=== PATIENT | female | born 1995 | race Caucasian/White ===

== ENCOUNTER 2016-09-15 15:30 | Emergency (ER) | payer MEDICAID ==
--- NOTE | 2016-09-15 17:02 | UCPHY ---
H & P Time Seen by Provider: 09/15/16 16:59 Patient Type: Established HPI/ROS: HPI: Th 20-year-old female presents to urgent care with chief concern fever up to 101.5, sore throat, enlarged tonsils. Symptoms onset suddenly yesterday. Reports significant fatigue. Reports myalgias. Had 1 episode of emesis yesterday. Denies dizziness, nasal congestion, dysphagia, trismus, cough, shortness of breath, chest pain, abdominal pain, diarrhea, rash. Has a history of frequent strep. No allergies. Immunocompetent. ROS:10 point review of systems is negative other than as stated in HPI Past Medical/Surgical History: Frequent strep Smoking Status: Current some day smoker Physical Exam: Vital signs reviewed by me General: Awake, alert, calm, cooperative. No apparent distress. EENT: PERRLA, EOMI. Pupils injected. TMs intact, without redness or bulging. Pharynx erythematous. No tonsillar abscess or exudates. Uvula midline. No drooling. No trismus. No frontal or maxillary tenderness to palpation. Occipital nodes enlarged on the right. Neck: Bilaterally, AC nodes tender and enlarged. Respiratory: Breathing unlabored. Lungs clear to auscultation bilaterally. CV: Heart rate regular. No murmur, rub, or gallop. GI: Abdomen soft, nontender. No hepatosplenomegaly. Bowel sounds positive x4 quadrants. : Deferred Skin: Warm, dry, intact. No rashes present. Musculoskeletal: Full ROM all extremities. Neuro: Alert oriented x3. Constitutional: Initial Vital Signs Temperature (C) 37.3 C 09/15/16 16:25 Heart Rate 110 H 09/15/16 16:25 Respiratory Rate 16 09/15/16 16:25 Blood Pressure 113/73 09/15/16 16:25 O2 Sat (%) 95 09/15/16 16:25 O2 Delivery Mode Room Air Allergies/Adverse Reactions: No Known Allergies Allergy (Unverified 06/13/15 12:01) Home Medications: Medication Instructions Recorded oxyCODONE/APAP 5/325 [Percocet 1 - 2 tab PO Q4-6PRN PRN #15 tab 06/13/15 5/325] Amoxicillin 500 mg PO BID 10 Days 09/15/16 Medical Decision Making ED Course/Re-evaluation: 1700: 20-year-old female presents to ED with 24 hours of sore throat and fever. No dysphagia or trismus. She is tolerating p.o.. Rapid strep pending. Garfield test pending as she has enlarged occipital lymph nodes. Given 12 mg oral Decadron and 650 p.o. Tylenol. 1722: Rapid strep positive. Monospot negative. Discharged with 10 days twice daily amoxicillin. Tolerating p.o.. Differential Diagnosis: Differential diagnosis includes but is not limited to in no particular order pharyngitis, strep pharyngitis, mononucleosis, peritonsillar abscess - Data Points Laboratory Results: 09/15/16 09/15/16 17:10 17:10 Monoscreen NEGATIVE (NEGATIVE) Group A Strep Screen POSITIVE H (NEGATIVE) Medications Given: Discontinued Medications Acetaminophen (Tylenol) 650 mg PO EDNOW ONE Stop: 09/15/16 17:06 Last Admin: 09/15/16 17:26 Dose: 650 mg Dexamethasone (Decadron) 12 mg PO EDNOW ONE Stop: 09/15/16 17:05 Last Admin: 09/15/16 17:26 Dose: 12 mg Departure - Departure Disposition: Home, Routine, Self-Care Clinical Impression: Strep pharyngitis Condition: Good Instructions: Strep Throat (ED) Additional Instructions: Plan: Push fluids Amoxicillin antibiotic for 10 days as prescribed You may use 600 mg of ibuprofen every 6 hours for fever, inflammation, or pain. Always take ibuprofen with food and stay well hydrated while taking. Do not exceed the maximum allowable dose in a 24 hour period which is 2400 mg. You may use 1000 mg of Tylenol every 8 hours. This may be staggered with the ibuprofen. Do not exceed the maximum dose in a 24 hour period which is 3 GM or 3000 mg. Follow up with primary care by Monday for recheck without fail--When you call to schedule appointment, please let the office know you are an "ER follow up" appointment" Referrals: NONE *PRIMARY CARE P,. [Primary Care Provider] - As per Instructions Katelyn Hutton MD [Medical Doctor] - As per Instructions Prescriptions: Amoxicillin 500 mg PO BID 10 Days - PQRS PQRS Measurement: Not applicable
[2016-09-15] MEDS ORDERED: DEXAMETHASONE 4 MG TAB PO ONE (17:04)
[2016-09-15] MEDS ORDERED: ACETAMINOPHEN 325 MG TAB PO ONE (17:05)
[2016-09-15] MEDS ORDERED: DEXAMETHASONE 4 MG TAB ONE (17:22)
[2016-09-15] MEDS ORDERED: ACETAMINOPHEN 325 MG TAB ONE (17:22)
[2016-09-15 17:47] VITALS: BP 119/67; PULSE 91; RESP 14; TEMP 98.6; O2SAT 96
== END 2016-09-15 17:58 | disposition home or self-care (01) ==
LOC: CED 15:30
DX: J02.0 Streptococcal pharyngitis (principal)
CPT/HCPCS: 86308-PO; 87880-PO; 99214-PO; G0463-PO